=== PATIENT | female | born 1995 | race Caucasian/White ===

== ENCOUNTER → 2020-07-01 | Outpatient (CLI) | payer OTHER | LOC: EMI 10:00 | DX: M54.5 Low back pain (principal); M51.26 Other intervertebral disc displacement, lumbar region; M47.816 Spondylosis without myelopathy or radiculopathy, lumbar region | CPT/HCPCS: 72148 ==

== ENCOUNTER 2022-01-03 09:18 | Emergency (ER) | payer OTHER ==
[2022-01-03 10:05] LABS: HEMOGLOBIN 13.7 gm/dl (12.3-15.3); RED BLOOD COUNT 4.64 M/UL (4.00-5.10); WHITE BLOOD COUNT 5.6 K/UL (4.5-11.0)
[2022-01-03 10:36] LABS: BUN/CREATININE RATIO 12 (0-10)
== END 2022-01-03 14:06 | disposition home or self-care (01) ==
LOC: ER1 09:18
PROVIDERS: Emergency Medicine
DX: R10.9 Unspecified abdominal pain (principal); R10.811 Right upper quadrant abdominal tenderness; R10.12 Left upper quadrant pain
CPT/HCPCS: 76705; 80053; 81001; 83690; 84703; 85025; 99284; Q9967